=== PATIENT | female | born 1985 | race Caucasian/White ===

== ENCOUNTER 2023-09-21 17:48 | Emergency (ER) | payer SELFPAY ==
[2023-09-21 19:54] LABS: Specific Gravity > 1.030 (1.005-1.030)
[2023-09-21 19:55] LABS: Specific Gravity > 1.030 (1.005-1.030); Sqamous Epithelial <5 /HPF (None Seen); Urine Bacteria None Seen /HPF (<20); Urine Bilirubin NEGATIVE (Negative); Urine Blood 2+ (Negative); Urine Clarity Clear (Clear); Urine Color Yellow (Yellow); Urine Crystals Unidentified Few /HPF (None Seen); Urine Culture Reflex Order NOT NEEDED; Urine Glucose NEGATIVE (Negative); Urine Ketones NEGATIVE (Negative); Urine Microscopic Reflex YN ORDER UMIC; Urine Mucus Slight /HPF (None Seen); Urine Nitrite NEGATIVE (Negative); Urine Protein TRACE (Negative); Urine RBC <5 /HPF (None Seen); Urine Urobilinogen Normal (Normal); Urine WBC <5 /HPF (<5); Urine pH 5.5 (5.0-7.0)
[2023-09-21 19:58] LABS: Absolute Basophils 0.1 K/uL (0-0.5); Absolute Eosinophils 0.3 K/uL (0-0.5); Absolute Lymphocytes (CBC) 3.8 K/uL (0.7-4.9); Absolute Monocytes 0.9 K/uL (0.1-1.3); Basophils % 0.9 % (0-1.3); Eosinophils % 2.5 % (0-4.4); Hematocrit 40.9 % (36.0-45.0); Hemoglobin 13.8 g/dL (12.0-15.0); Lymphocytes % 37.5 % (15.3-44.8); MCH 30.6 pg (27.0-35.0); MCHC 33.7 g/dL (32.0-36.0); MCV 90.8 fL (80-100); MPV 8.7 fL (7.6-11.3); Monocytes % 8.9 % (3.3-12.3); Neutrophils % 50.2 % (41.7-73.7); Nucleated Red Blood Cells % 0.1 % (0-0); Platelets 355 thou/uL (152-406); RBC Red Blood Cell Count 4.51 M/uL (3.86-4.86); Red Cell Distribution Width 13.3 % (12.1-15.2)
[2023-09-21 20:06] LABS: ALT/SGPT 19 U/L (13-56); Alkaline Phosphatase 52 U/L (45-117); Anion Gap 7.3 mEq/L (5.0-15.0); BUN Blood Urea Nitrogen 15 mg/dL (7-18); Bicarbonate 27 mEq/L (21-32); Bilirubin Total 0.3 mg/dL (0.2-1.0); Globulin 4.2 g/dL (2.3-3.5); Glomerular Filtration Rate 81 ml/min (=/>90); Glucose Level 99 mg/dL (74-106); Lipase 69 U/L (13-75); Potassium 3.3 mEq/L (3.5-5.1); Protein, Total 8.2 g/dL (6.4-8.2); Sodium Level 140 mEq/L (136-145)
[2023-09-21 20:07] LABS: SARS-CoV-2 Antigen CONTROL BLUE LINE VIS/BG OK; SARS-CoV-2 Antigen Rapid Res Negative (Negative)
[2023-09-21 20:08] LABS: AST/SGOT < 10 U/L (15-37)
--- NOTE | 2023-09-21 20:54 | RAD REPORT ---
EXAM DESCRIPTION: CT - Head Brain Wo Cont - 09/21/2023 8:45 pm CLINICAL HISTORY: head CT , seizures Headache, drowsiness, seizure COMPARISON: No comparisons TECHNIQUE: All CT scans are performed using dose optimization technique as appropriate and may inclu de automated exposure control or mA/KV adjustment according to patient size. FINDINGS: No intracranial hemorrhage, hydrocephalus or extra-axial fluid collection.No areas of brai n edema or evidence of midline shift. The paranasal sinuses and mastoids are clear. The calvarium is intact. IMPRESSION: No acute intracranial abnormality.
--- NOTE | 2023-09-21 20:56 | RAD REPORT ---
EXAM DESCRIPTION: CTAbdomen Pelvis W Contrast - 09/21/2023 8:47 pm CLINICAL HISTORY: Abdominal pain. ABD PAIN COMPARISON: No comparisons TECHNIQUE: Biphasic CT imaging of the abdomen and pelvis was performed with 100 ml non-ionic IV cont rast. All CT scans are performed using dose optimization technique as appropriate and may include automated exposure control or mA/KV adjustment according to patient size. FINDINGS: The lung bases are clear. The liver contains a 3 cm homogeneously enhancing lesion in the posterior right lobe likely benign he mangioma. Spleen, pancreas, adrenal glands and kidneys are within normal limits. No bowel obstruction, free air, free fluid or abscess. Moderate stool is present throughout the colon . The appendix is normal. Small fat containing umbilical hernia. No evidence of significant lymphaden opathy. No suspicious bony findings. IMPRESSION: No acute intra-abdominal or pelvic finding. Moderate stool is present throughout the colon.
[2023-09-21] MEDS ORDERED: METOCLOPRAMIDE 5 MG TAB ONE (21:06)
[2023-09-21] MEDS ORDERED: ONDANSETRON 4 MG (ODT) TAB ONE (21:18)
--- NOTE | 2023-09-21 22:16 | EDPHYS ---
Physician Documentation [facility] Name: Emilie Cole Age: 38 yrs Sex: Female : 1985 Arrival Date: 09/21/2023 Time: 17:48 Bed 9 Private MD: ED Physician Jersey Elkins HPI: 09/20 19:05 This 38 yrs old Female presents to ER via Ambulatory with complaints of Doesn't Feel sp3 Right. 19:05 38-year-old female with a history of epilepsy not on seizure medications and patient sp3 with no PCP now presents to the ED with chief complaint abdominal pain, vomiting and diarrhea has been going off and on for the last 3 to 4 days. No blood or mucus in any of her output. She denies chest pain, shortness of breath, fever but does state that she "does not feel right" and has had some bodyaches. She denies any known sick contacts, travel history, prolonged immobilization, syncope, near syncope, rash, or any other signs or symptoms on ROS at this time. Past surgical history includes x 2 without any other intra-abdominal surgeries.. 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 - Infectious Disease History:: Denies. - Social history:: Smoking status: Reported history of juuling and/or vaping. ROS: 19:06 Constitutional: Negative for fever, chills, and weight loss, Eyes: Negative for injury, sp3 pain, redness, and discharge, Neck: Negative for injury, pain, and swelling, Cardiovascular: Negative for chest pain, palpitations, and edema, Respiratory: Negative for shortness of breath, cough, wheezing, and pleuritic chest pain, Back: Negative for injury and pain, MS/Extremity: Negative for injury and deformity, Skin: Negative for injury, rash, and discoloration, Psych: Negative for depression, anxiety, suicide ideation, homicidal ideation, and hallucinations, Allergy/Immunology: Negative for hives, rash, and allergies, Endocrine: Negative for neck swelling, polydipsia, polyuria, polyphagia, and marked weight changes, Hematologic/Lymphatic: Negative for swollen nodes, abnormal bleeding, and unusual bruising, 19:06 All other systems are negative, Exam: 19:06 Constitutional: This is a well developed, well nourished patient who is awake, alert, sp3 and in no acute distress. Head/Face: Normocephalic, atraumatic. Eyes: Pupils equal round and reactive to light, extra-ocular motions intact. Lids and lashes normal. Conjunctiva and sclera are non-icteric and not injected. Cornea within normal limits. Periorbital areas with no swelling, redness, or edema. Neck: Trachea midline, no thyromegaly or masses palpated, and no cervical lymphadenopathy. Supple, full range of motion without nuchal rigidity, or vertebral point tenderness. No Meningismus. Chest/axilla: Normal chest wall appearance and motion. Nontender with no deformity. No lesions are appreciated. Cardiovascular: Regular rate and rhythm with a normal S1 and S2. No gallops, murmurs, or rubs. Normal PMI, no JVD. No pulse deficits. Respiratory: Lungs have equal breath sounds bilaterally, clear to auscultation and percussion. No rales, rhonchi or wheezes noted. No increased work of breathing, no retractions or nasal flaring. Back: No spinal tenderness. No costovertebral tenderness. Full range of motion. Skin: Warm, dry with normal turgor. Normal color with no rashes, no lesions, and no evidence of cellulitis. MS/ Extremity: Pulses equal, no cyanosis. Neurovascular intact. Full, normal range of motion. Neuro: Awake and alert, GCS 15, oriented to person, place, time, and situation. Cranial nerves II-XII grossly intact. Motor strength 5/5 in all extremities. Sensory grossly intact. Cerebellar exam normal. Normal gait. Psych: Awake, alert, with orientation to person, place and time. Behavior, mood, and affect are within normal limits. 19:06 Abdomen/GI: Abdomen soft, diffusely tender without peritoneal signs, rebound or guarding. Nonsurgical abdomen., Vital Signs: 18:35 BP 121 / 70; Pulse 62; Resp 16; Temp 97.8(O); Pulse Ox 100% ; Weight 65.77 kg; Height 5 nj1 ft. 3 in. ; Pain 2/10; 21:30 BP 107 / 64; Pulse Ox 100% ; cm10 22:00 BP 119 / 65; Pulse 80; Resp 18; Pulse Ox 100% ; cm10 18:35 Body Mass Index 25.69 (65.77 kg, 160.02 cm) nj1 18:35 Pain Scale: Adult nj1 MDM: 18:41 Patient medically screened. sp3 19:07 Data reviewed: vital signs, nurses notes, lab test result(s), radiologic studies. ED sp3 course: 38-year-old female with abdominal pain and gastroenteritis type symptoms. Differential diagnosis includes gastroenteritis, foodborne illness, biliary pathology including Ashlee lithiasis, cholecystitis, pancreatitis, gastritis, colitis, among others. I am entirely suspicious for pathology, MELT SUPERVISOR pathology, vascular pathology sepsis shock or any other critical process at this time. Disposition pending workup and patient course. Patient will be signed out to nighttime physician for final disposition and reevaluation.. 22:21 Differential diagnosis: Cholelithiasis, diverticulitis, Endometriosis, gastritis. sp4 Consideration of Admission/Observation Escalation of care including admission/observation considered. ED course: EXAM DESCRIPTION: CT - Head Brain Wo Cont - 09/21/2023 8:45 pm CLINICAL HISTORY: head CT , seizures Headache, drowsiness, seizure COMPARISON: No comparisons TECHNIQUE: All CT scans are performed using dose optimization technique as appropriate and may include automated exposure control or mA/KV adjustment according to patient size. FINDINGS: No intracranial hemorrhage, hydrocephalus or extra-axial fluid collection. No areas of brain edema or evidence of midline shift. The paranasal sinuses and mastoids are clear. The calvarium is intact. IMPRESSION: No acute intracranial abnormality. . ED course: EXAM DESCRIPTION: CTAbdomen Pelvis W Contrast - 09/21/2023 8:47 pm CLINICAL HISTORY: Abdominal pain. ABD PAIN COMPARISON: No comparisons TECHNIQUE: Biphasic CT imaging of the abdomen and pelvis was performed with 100 ml non-ionic IV contrast. All CT scans are performed using dose optimization technique as appropriate and may include automated exposure control or mA/KV adjustment according to patient size. FINDINGS: The lung bases are clear. The liver contains a 3 cm homogeneously enhancing lesion in the posterior right lobe likely benign hemangioma. Spleen, pancreas, adrenal glands and kidneys are within normal limits. No bowel obstruction, free air, free fluid or abscess. Moderate stool is present throughout the colon. The appendix is normal. Small fat containing umbilical hernia. No evidence of significant lymphadenopathy. No suspicious bony findings. IMPRESSION: No acute intra-abdominal or pelvic finding. Moderate stool is present throughout the colon.. 09/20 18:56 Order name: CBC with Diff; Complete Time: 20:26 sp3 09/20 18:56 Order name: CMP; Complete Time: 20:26 sp3 09/20 18:56 Order name: Lipase; Complete Time: 20:26 sp3 09/20 18:56 Order name: Test, Urine; Complete Time: 20:26 sp3 09/20 18:56 Order name: Urinalysis w/ reflexes; Complete Time: 20:26 sp3 09/20 18:56 Order name: Flu; Complete Time: 20:26 sp3 09/20 18:56 Order name: SARS RAPID; Complete Time: 20:26 sp3 09/20 19:05 Order name: CT Abd/Pelvis - IV Contrast Only; Complete Time: 22:03 sp3 09/20 20:33 Order name: CT Head Brain wo Cont; Complete Time: 22:03 4 09/20 20:33 Order name: EKG; Complete Time: 20:34 sp4 09/20 18:56 Order name: IV Saline Lock; Complete Time: 19:40 3 09/20 18:56 Order name: Labs collected and sent; Complete Time: 19:40 sp3 09/20 20:33 Order name: EKG - Nurse/Tech; Complete Time: 21:18 sp4 Administered Medications: 21:18 Drug: MetoCLOPramide PO 10 mg PO once Route: PO; cm10 22:25 Follow up: Response: No adverse reaction cm10 21:20 Drug: Ondansetron PO 4 mg PO once Route: PO; cm10 22:25 Follow up: Response: No adverse reaction cm10 Disposition Summary: 09/21/23 22:15 Discharge Ordered Notes: Location: Home sp4 Problem: new sp4 Condition: Stable sp4 Diagnosis - Nausea with vomiting, unspecified sp4 - Nausea with vomiting, history of seizure disorder, palpitations sp4 Followup: sp4 - With: Crescencio Hall MD - When: 7 - 10 days - Reason: Recheck today's complaints Discharge Instructions: - Discharge Summary Sheet sp4 - Seizure, Adult, [id number] sp4 Forms: - Patient Portal Instructions sp4 Prescriptions: - Valium 5 mg Oral tablet - take 1 tablet ORAL route every 8 hours As needed PRN seizure; 30 tablet; sp4 Refills: 0, Product Selection Permitted - ondansetron 8 mg Oral Tablet,disintegrating - take 1 tablet ORAL route every 8 hours PRN vomiting; 30 tablet; Refills: 0, sp4 Product Selection Permitted Signatures: Dispatcher [employer] EDWalter Barrera MD MD sp3 Jersey Elkins MD MD sp4 Shawnee Espinoza RN RN nj1 Holli Castano RN RN cm10 Corrections: (The following items were deleted from the chart) 18:56 18:56 CBC+H.LAB.BRZ ordered. EDMS EDMS 18:56 18:56 COMPREHENSIVE METABOLIC PANEL+C.LAB.BRZ ordered. EDMS EDMS 18:56 18:56 LIPASE+C.LAB.BRZ ordered. EDMS EDMS 18:56 18:56 Test, Urine+UC.LAB.BRZ ordered. EDMS EDMS 18:56 18:56 Urinalysis+U.LAB.BRZ ordered. EDMS EDMS 18:56 18:56 Influenza Screen (A \\T\\ B)+BA.LAB.BRZ ordered. EDMS EDMS 18:56 18:56 SARS-COV-2 Antigen Rapid+I.LAB.BRZ ordered. EDMS EDMS 19:07 19:05 38-year-old female with a history of epilepsy not on seizure medications and sp3 patient with no PCP now presents to the ED with chief complaint abdominal pain, vomiting and diarrhea has been going off and on for the last 3 to 4 days. No blood or mucus in any of her output. She denies chest pain, shortness of breath, fever but does state that she "does not feel right" and has had some bodyaches. She denies any known sick contacts, travel history, prolonged immobilization, syncope, near syncope, rash, or any other signs or symptoms on ROS at this time.. sp3
--- NOTE | 2023-09-21 22:16 | ER ---
Nurse's Notes [facility] Name: Emilie Cole Age: 38 yrs Sex: Female : 1985 Arrival Date: 09/21/2023 Time: 17:48 Bed 9 Private MD: Diagnosis: Nausea with vomiting, unspecified;Nausea with vomiting, history of seizure disorder, palpitations Presentation: 09/20 18:35 Chief complaint: Patient states: Not feeling good over the last few days. Nauseous, nj1 vomiting and diarrhea today, heart burn for days, cough up some phlegm with blood in it on Monday. Chest pains also. Coronavirus screen: Vaccine status: Patient reports receiving the 2nd dose of the covid vaccine. Ebola Screen: Patient denies travel to an Ebola-affected area in the 21 days before illness onset. Initial Sepsis Screen: Does the patient meet any 2 criteria? No. Patient's initial sepsis screen is negative. Does the patient have a suspected source of infection? No. Patient's initial sepsis screen is negative. Risk Assessment: Do you want to hurt yourself or someone else? Patient reports no desire to harm self or others. Onset of symptoms was September 2023. 18:35 Method Of Arrival: Ambulatory [facility] 18:35 Acuity: JENNIFER 3 nj1 Triage Assessment: 18:41 General: Appears in no apparent distress. comfortable, Behavior is calm, cooperative, nj1 appropriate for age. Pain: Complains of pain in chest Pain currently is 2 out of 10 on a pain scale. 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 - Infectious Disease History:: Denies. - Social history:: Smoking status: Reported history of juuling and/or vaping. Screenin:41 [facility] ED Fall Risk Assessment (Adult) History of falling in the last 3 months, cm10 including since admission No falls in past 3 months (0 pts) Confusion or Disorientation No (0 pts) Intoxicated or Sedated No (0 pts) Impaired Gait No (0 pts) Mobility Assist Device Used No (0 pt) Altered Elimination No (0 pt) Score/Fall Risk Level 0 - 2 = Low Risk Oriented to surroundings, Maintained a safe environment, Hourly rounding (assess needs \T\ fall precautionary measures) done. Abuse screen: Denies threats or abuse. Denies injuries from another. Nutritional screening: No deficits noted. Tuberculosis screening: No symptoms or risk factors identified. Assessment: 19:40 General: Appears in no apparent distress. comfortable, Behavior is calm, cooperative. cm10 Pain: Complains of pain in chest. Pain: Quality of pain is described as burning. Neuro:. Neuro: No deficits noted. Level of Consciousness is awake, alert, obeys commands, Oriented to person, place, time, situation, Appropriate for age. Respiratory: No deficits noted. Airway is patent Respiratory effort is even, unlabored, Respiratory pattern is regular, symmetrical. GI: Reports upper abdominal pain, diarrhea, nausea, vomiting. Derm: No deficits noted. Skin is intact, Skin is pink, warm \T\ dry. Musculoskeletal: No deficits noted. Range of motion: intact in all extremities. Vital Signs: 18:35 BP 121 / 70; Pulse 62; Resp 16; Temp 97.8(O); Pulse Ox 100% ; Weight 65.77 kg; Height 5 nj1 ft. 3 in. ; Pain 2/10; 21:30 BP 107 / 64; Pulse Ox 100% ; cm10 22:00 BP 119 / 65; Pulse 80; Resp 18; Pulse Ox 100% ; cm10 18:35 Body Mass Index 25.69 (65.77 kg, 160.02 cm) nj1 18:35 Pain Scale: Adult [facility] ED Course: 17:51 Patient arrived in ED. rg4 17:58 Walter Pereira MD is Attending Physician. sp3 18:39 Triage completed. nj1 18:41 Arm band placed on right wrist. nj1 19:13 Holli Castano, KYUNG is Primary Nurse. cm10 19:40 SARS RAPID Sent. cm10 19:40 Flu Sent. cm10 19:40 CBC with Diff Sent. cm10 19:40 CMP Sent. cm10 19:40 Lipase Sent. cm10 19:40 Test, Urine Sent. cm10 19:40 Urinalysis w/ reflexes Sent. cm10 19:40 Initial lab(s) drawn, by me, sent to lab. Inserted saline lock: 20 gauge in right cm10 antecubital area, using aseptic technique. Blood collected. 19:42 Patient has correct armband on for positive identification. Bed in low position. Call cm10 light in reach. Pulse ox on. NIBP on. 20:08 Attending Physician role handed off by Walter Pereira MD sp4 20:08 Jersey Elkins MD is Attending Physician. sp4 20:47 CT Head Brain wo Cont In Process Unspecified. EDMS 20:48 CT Abd/Pelvis - IV Contrast Only In Process Unspecified. EDMS 21:20 EKG done, by ED staff, reviewed by Jersey Elkins MD. cm10 22:14 Crescencio Hall MD is Referral Physician. sp4 22:24 Provided Education on: follow-up instructions. cm10 22:24 No provider procedures requiring assistance completed. IV discontinued, intact, cm10 bleeding controlled, No redness/swelling at site. Pressure dressing applied. Administered Medications: 21:18 Drug: MetoCLOPramide PO 10 mg PO once Route: PO; cm10 22:25 Follow up: Response: No adverse reaction cm10 21:20 Drug: Ondansetron PO 4 mg PO once Route: PO; cm10 22:25 Follow up: Response: No adverse reaction cm10 Medication: 19:41 VIS not applicable for this client. cm10 Outcome: 22:15 Discharge ordered by . sp4 22:24 Discharged to home ambulatory, with significant other, cm10 22:24 Condition: good 22:24 Discharge instructions given to patient, Instructed on discharge instructions, follow up and referral plans. medication usage, Demonstrated understanding of instructions, follow-up care, medications, Prescriptions given X 2, 22:25 Patient left the ED. cm10 Signatures: Dispatcher [employer] Maile Arguello rg4 Walter Pereira MD MD sp3 Jersey Elkins MD MD sp4 Shawnee Espinoza RN RN nj1 Holli Castano RN RN cm10
[2023-09-21 22:50] VITALS: BP 119/65; TEMP 97.8; O2SAT 100
--- NOTE | 2023-09-22 12:32 | EKG ---
Test Date: 2023-09-21 Test Time: 21:12:33 Sorter Packer: JUAN MEASUREMENT RESULTS: Intervals: Rate: 50 MS: 164 QRSD: 80 QT: 444 QTc: 404 [place]: P: 46 MS: 164 QRS: 53 T: 41 INTERPRETIVE STATEMENTS: Sinus bradycardia Otherwise normal ECG No previous ECG available for comparison Electronically Signed On 09-22-23 12:31:45 CDT by Onel Perkins
== END 2023-09-21 22:25 | disposition home or self-care (01) ==
LOC: ER 17:48
DX: R11.2 Nausea with vomiting, unspecified (principal); G40.909 Epilepsy, unspecified, not intractable, without status epilepticus; R00.2 Palpitations; Z11.52 Encounter for screening for COVID-19
CPT/HCPCS: 36415; 70450; 74177; 80053; 81001; 81025; 83690; 85025; 87804; 87811; 93005; 99284; Q0162; Q9967